=== PATIENT | female | born 1960 | race African-American/Black ===

== ENCOUNTER 2022-04-30 12:55 | Inpatient (IN) | payer OTHER ==
[2022-04-30] VITALS (14 sets, daily range): BP systolic 90–112; BP diastolic 56–65
[~2022-04-30] VITALS: Ht 170.2 cm; Wt 96.6 kg
[2022-04-30] MEDS ORDERED: VANCOMYCIN 1G PREMIX 200 ML IV ONE (13:30)
[2022-04-30] MEDS ORDERED: SODIUM CHLORIDE 0.9% 1,000 ML IV ONE (13:30)
[2022-04-30] MEDS ORDERED: CEFTRIAXONE 1 G PREMIX 50 ML IV ONE (13:30)
[2022-04-30 13:53] LABS: HEMATOCRIT. 33.3 % (36.0-48.0); HEMOGLOBIN. 10.4 g/dL (12.0-16.0); MEAN CORPUSCULAR HEMOGLOBIN 34.8 pg (28.0-32.0); MEAN CORPUSCULAR VOLUME 111.4 fL (81.0-99.0); MEAN PLATELET VOLUME 9.7 fl (7.4-10.4); PLATELET 93 x1000/uL (130-400); RED BLOOD CELL COUNT 2.99 mill/uL (4.2-5.4); RED CELL DISTRIBUTION WIDTH 22.3 % (11.6-14.6)
[2022-04-30 14:00] LABS: CLARITY URINE CLOUDY (CLEAR); COLOR URINE DARK YELLOW (YELLOW); KETONES URINE TRACE (NEGATIVE); LEUKOCYTE ESTERASE URINE 2+ (NEGATIVE); NITRITE URINE NEGATIVE (NEGATIVE); OCCULT BLOOD URINE NEGATIVE (NEGATIVE); PH URINE 5.5 (4.5-8.0); PROTEIN URINE 1+ (NEGATIVE); SPECIFIC GRAVITY URINE 1.029 (1.005-1.030)
[2022-04-30] MEDS ORDERED: SODIUM CHLORIDE 0.9% 1000ML BAG (SEPSIS BOLUS) IV ONE (14:00)
[2022-04-30 14:02] LABS: CHLORIDE 105 mEq/L (98-107)
[2022-04-30 14:16] LABS: CREATINE KINASE 52 IU/L (26-192); ETHANOL BLOOD < 10 mg/dL
[2022-04-30 14:31] LABS: NUCLEATED RED BLOOD CELLS 2 /100 WBC; PLATELET ESTIMATE DECREASED
[2022-04-30] MEDS ORDERED: CEFEPIME 2,000 MG in DEXT 5% WATER 100 ML IV SCH (14:45)
[2022-04-30] MEDS ORDERED: NOREPINEPHRINE 8MG/250ML PMX 250 ML IV ONE ×2 (14:45→23:15)
[2022-04-30] MEDS ORDERED: IOHEXOL-350 100 ML BOTTLE ONE (14:52)
[2022-04-30 15:43] LABS: INR 1.3; PARTIAL THROMBOPLASTIN TIME 37.7 sec (23.4-31.0); PROTHROMBIN TIME 13.3 sec (9.6-11.0)
[2022-04-30] MEDS ORDERED: AMPICILLIN 2000MG in SODIUM CHLORIDE 0.9% 100ML IV NR (16:00)
[2022-04-30] MEDS ORDERED: ACYCLOVIR INJ 600 MG in DEXT 5% WATER 100 ML IV NR (16:00)
[2022-04-30] MEDS ORDERED: FENTANYL CITRATE/PF 50MCG/ML 2ML VIAL IV ONE (16:00)
[2022-04-30] MEDS ORDERED: MAGNESIUM/ALUMINUM HYDROXIDE/SIMETHICONE 30ML UDC PO PRN (18:00)
[2022-04-30] MEDS ORDERED: DIAZEPAM 5 MG/ML 2ML CPJ IV PRN (18:00)
[2022-04-30] MEDS ORDERED: ACETAMINOPHEN 325MG TABLET PO PRN (18:00)
[2022-04-30] MEDS ORDERED: GUAIFENESIN 200MG/10ML SUGAR FREE UDC PO PRN (18:00)
[2022-04-30] MEDS: ENOXAPARIN 40MG/0.4ML SYR SUBCUT SCH ×2 (19:00→22:03)
[2022-04-30] MEDS: SODIUM CHLORIDE 0.9% 1,000 ML IV SCH (20:00)
[2022-04-30] MEDS: VANCOMYCIN 1G PREMIX 200 ML IV SCH (20:36)
[2022-04-30] MEDS ORDERED: PHENYLEPHRINE 50 MG in DEXT 5% WATER 245 ML IV PRN (23:15)
[2022-04-30] MEDS ORDERED: ACYCLOVIR INJ 750 MG in DEXT 5% WATER 100 ML IV SCH (23:55)
[2022-05-01] VITALS (93 sets, daily range): BP systolic 68–137; BP diastolic 48–89
[2022-05-01] MEDS: SODIUM CHLORIDE 0.9% 1,000 ML IV SCH ×4 (01:42→23:56)
[2022-05-01] MEDS: NOREPINEPHRINE 8 MG in DEXTROSE 5% WATER 250 ML IV PRN ×2 (01:44→17:36)
[2022-05-01] MEDS: ACYCLOVIR INJ 750 MG in DEXT 5% WATER 100 ML IV SCH ×3 (01:44→17:36)
[2022-05-01] MEDS: MORPHINE SULFATE 2 MG/ML CPJ (NOT FOR IM USE) IV PRN ×2 (04:27→09:58)
[2022-05-01 04:29] LABS: HEMATOCRIT. 28.1 % (36.0-48.0); HEMOGLOBIN. 9.4 g/dL (12.0-16.0); MEAN CORPUSCULAR VOLUME 104.4 fL (81.0-99.0); MEAN PLATELET VOLUME 10.1 fl (7.4-10.4); PLATELET 79 x1000/uL (130-400); RED BLOOD CELL COUNT 2.69 mill/uL (4.2-5.4); RED CELL DISTRIBUTION WIDTH 22.4 % (11.6-14.6)
[2022-05-01 04:36] LABS: CHLORIDE 109 mEq/L (98-107)
[2022-05-01 04:40] LABS: PHOSPHORUS 2.8 mg/dL (2.5-4.9)
[2022-05-01] MEDS: VANCOMYCIN 1G PREMIX 200 ML IV SCH (05:20)
[2022-05-01 05:33] LABS: PLATELET ESTIMATE DECREASED
[2022-05-01 07:21] LABS: BG BASE EXCESS -4.5 mmol/L (-2.0-2.0); BG CARBOXYHEMOGLOBIN 0.4 % (0.5-1.5); BG DEOXYHEMOGLOBIN 4.4 % (0.0-5.0); BG HCO3 ACT 19.2 mmol/L (22.0-26.0); BG METHEMOGLOBIN 0.1 % (0.0-1.5); BG OXYGEN SATURATION 95.6 % (92.0-98.5); BG OXYHEMOGLOBIN 95.1 % (94.0-97.0); BG PO2 80.4 mmHg (75.0-100.0); BG SAMPLE SITE RIGHT RADIAL; BG TOTAL HEMOGLOBIN 11.6 g/dL (12.0-18.0); BG VENT MODE ROOM AIR
[2022-05-01] MEDS: CEFEPIME 2,000 MG in DEXT 5% WATER 100 ML IV SCH ×2 (13:42→23:53)
[2022-05-01] MEDS ORDERED: VANCOMYCIN 1G PREMIX 200 ML IV SCH (20:00)
[2022-05-01] MEDS ORDERED: NALOXONE HCL 0.4MG/ML VIAL IV PRN (23:00)
[2022-05-02] VITALS (74 sets, daily range): BP systolic 98–138; BP diastolic 51–86
[2022-05-02] MEDS: MORPHINE SULFATE 2 MG/ML CPJ (NOT FOR IM USE) IV PRN ×2 (01:47→20:43)
[2022-05-02] MEDS: ACYCLOVIR INJ 750 MG in DEXT 5% WATER 100 ML IV SCH ×3 (03:08→17:53)
[2022-05-02 05:08] LABS: HEMATOCRIT. 24.8 % (36.0-48.0); HEMOGLOBIN. 7.9 g/dL (12.0-16.0); MEAN CORPUSCULAR HEMOGLOBIN 34.8 pg (28.0-32.0); MEAN CORPUSCULAR VOLUME 109.1 fL (81.0-99.0); MEAN PLATELET VOLUME 9.9 fl (7.4-10.4); PLATELET 59 x1000/uL (130-400); RED BLOOD CELL COUNT 2.28 mill/uL (4.2-5.4)
[2022-05-02 05:42] LABS: CHLORIDE 110 mEq/L (98-107)
[2022-05-02 05:56] LABS: PHOSPHORUS 2.4 mg/dL (2.5-4.9); TOTAL IRON BINDING CAPACITY 180 ug/dL (250-450)
[2022-05-02 05:58] LABS: CARCINO EMBRYONIC ANTIGEN 33.5 ng/ml
[2022-05-02 06:09] LABS: HEPATITIS B SURFACE ANTIGEN NEGATIVE
[2022-05-02 06:18] LABS: VITAMIN B12 SERUM >2000 pg/mL pg/mL (211-911)
[2022-05-02 06:28] LABS: FERRITIN 2860 ng/mL (10-291)
[2022-05-02] MEDS: CEFEPIME 2,000 MG in DEXT 5% WATER 100 ML IV SCH (09:49)
[2022-05-02] MEDS: SODIUM HYPOCHLORITE 0.125% 473ML SOLUTION TOP SCH (09:50)
[2022-05-02] MEDS: KCL 20MEQ/100ML PREMIX 100 ML IV SCH ×2 (12:00→14:34)
[2022-05-02] MEDS: FOLIC ACID 1MG TABLET PO SCH (12:26)
[2022-05-02 14:00] LABS: NUCLEATED RED BLOOD CELLS 5 /100 WBC
[2022-05-02 14:01] LABS: PLATELET ESTIMATE DECREASED
[2022-05-02] MEDS: LEVOFLOXACIN 750MG PREMIX 150 ML IV SCH (17:53)
[2022-05-02] MEDS: ACETAMINOPHEN 325MG TABLET PO PRN (17:53)
[2022-05-02] MEDS: VANCOMYCIN 750MG PREMIX 150 ML IV SCH (20:40)
[2022-05-02] MEDS: LACTULOSE 20G/30ML UDC PO SCH (20:40)
[2022-05-03] VITALS (81 sets, daily range): BP systolic 98–135; BP diastolic 51–89
[2022-05-03] MEDS: ACYCLOVIR INJ 750 MG in DEXT 5% WATER 100 ML IV SCH ×3 (01:11→17:04)
[2022-05-03 06:03] LABS: CHLORIDE 108 mEq/L (98-107)
[2022-05-03] MEDS: FOLIC ACID 1MG TABLET PO SCH (09:41)
[2022-05-03] MEDS: SODIUM HYPOCHLORITE 0.125% 473ML SOLUTION TOP SCH (09:42)
[2022-05-03] MEDS: VANCOMYCIN 750MG PREMIX 150 ML IV SCH (13:12)
[2022-05-03] MEDS: LEVOFLOXACIN 750MG PREMIX 150 ML IV SCH (17:04)
[2022-05-03 19:34] LABS: BASOPHILS % 0.2 % (0.0-2.0); EOSINOPHILS % 0.1 % (0.0-5.0); HEMATOCRIT. 26.2 % (36.0-48.0); HEMOGLOBIN. 8.6 g/dL (12.0-16.0); LYMPHOCYTES % 13.8 % (20.0-50.0); MEAN CORPUSCULAR HEMOGLOBIN 35.5 pg (28.0-32.0); MEAN CORPUSCULAR VOLUME 107.8 fL (81.0-99.0); MEAN PLATELET VOLUME 10.4 fl (7.4-10.4); MONOCYTES % 2.5 % (2.0-8.0); NEUTROPHILS % 83.4 % (40.0-76.0); PLATELET 55 x1000/uL (130-400); RED BLOOD CELL COUNT 2.43 mill/uL (4.2-5.4); RED CELL DISTRIBUTION WIDTH 22.3 % (11.6-14.6)
[2022-05-03 20:34] LABS: PLATELET ESTIMATE MARKEDLY DECREASED
[2022-05-03] MEDS: LACTULOSE 20G/30ML UDC PO SCH (21:20)
[2022-05-04] VITALS (52 sets, daily range): BP systolic 84–136; BP diastolic 51–91
[2022-05-04] MEDS: ACYCLOVIR INJ 750 MG in DEXT 5% WATER 100 ML IV SCH ×3 (02:00→19:51)
[2022-05-04] MEDS: MORPHINE SULFATE 2 MG/ML CPJ (NOT FOR IM USE) IV PRN ×2 (04:27→17:55)
[2022-05-04 06:12] LABS: CHLORIDE 109 mEq/L (98-107)
[2022-05-04] MEDS: VANCOMYCIN 750MG PREMIX 150 ML IV SCH (07:42)
[2022-05-04 08:11] LABS: HEMATOCRIT. 22.9 % (36.0-48.0); MEAN CORPUSCULAR HEMOGLOBIN 36.6 pg (28.0-32.0); MEAN CORPUSCULAR VOLUME 104.5 fL (81.0-99.0); MEAN PLATELET VOLUME 10.6 fl (7.4-10.4); PLATELET 52 x1000/uL (130-400); RED BLOOD CELL COUNT 2.19 mill/uL (4.2-5.4); RED CELL DISTRIBUTION WIDTH 22.2 % (11.6-14.6)
[2022-05-04] MEDS ORDERED: LIDOCAINE HCL 1% 10 MG/ML 10ML VIAL ONE (08:29)
[2022-05-04] MEDS: FOLIC ACID 1MG TABLET PO SCH (09:48)
[2022-05-04] MEDS: SODIUM HYPOCHLORITE 0.125% 473ML SOLUTION TOP SCH (09:48)
[2022-05-04 12:24] LABS: NUCLEATED RED BLOOD CELLS 2 /100 WBC
[2022-05-04 12:25] LABS: PLATELET ESTIMATE DECREASED
[2022-05-04] MEDS: LEVOFLOXACIN 750MG PREMIX 150 ML IV SCH (17:44)
[2022-05-04] MEDS: LACTULOSE 20G/30ML UDC PO SCH (21:52)
[2022-05-05] VITALS (12 sets, daily range): BP systolic 97–117; BP diastolic 48–72
[2022-05-05] MEDS: VANCOMYCIN 750MG PREMIX 150 ML IV SCH ×2 (02:35→20:57)
[2022-05-05] MEDS: ACYCLOVIR INJ 750 MG in DEXT 5% WATER 100 ML IV SCH ×3 (04:27→19:34)
[2022-05-05] MEDS: MORPHINE SULFATE 2 MG/ML CPJ (NOT FOR IM USE) IV PRN ×5 (04:57→22:11)
[2022-05-05 06:16] LABS: CHLORIDE 109 mEq/L (98-107)
[2022-05-05 06:53] LABS: BASOPHILS % 0.2 % (0.0-2.0); EOSINOPHILS % 0.1 % (0.0-5.0); HEMATOCRIT. 23.2 % (36.0-48.0); HEMOGLOBIN. 7.6 g/dL (12.0-16.0); LYMPHOCYTES % 18.2 % (20.0-50.0); MEAN CORPUSCULAR HEMOGLOBIN 35.5 pg (28.0-32.0); MEAN PLATELET VOLUME 11.7 fl (7.4-10.4); MONOCYTES % 2.8 % (2.0-8.0); NEUTROPHILS % 78.7 % (40.0-76.0); RED BLOOD CELL COUNT 2.15 mill/uL (4.2-5.4); RED CELL DISTRIBUTION WIDTH 22.9 % (11.6-14.6)
[2022-05-05] MEDS: PANTOPRAZOLE SODIUM 40 MG/VIAL IV SCH ×2 (06:54→20:58)
[2022-05-05 06:57] LABS: PLATELET 41 x1000/uL (130-400)
[2022-05-05] MEDS: ONDANSETRON HCL 4MG/2ML INJ IV PRN ×2 (09:32→13:20)
[2022-05-05] MEDS: FOLIC ACID 1MG TABLET PO SCH (10:19)
[2022-05-05] MEDS: SODIUM HYPOCHLORITE 0.125% 473ML SOLUTION TOP SCH (10:20)
[2022-05-05] MEDS: LEVOFLOXACIN 750MG PREMIX 150 ML IV SCH (17:32)
[2022-05-05] MEDS: LACTULOSE 20G/30ML UDC PO SCH (20:58)
[2022-05-05 22:33] LABS: PLATELET ESTIMATE MARKEDLY DECREASED
[2022-05-06] VITALS (18 sets, daily range): BP systolic 97–120; BP diastolic 55–71
[2022-05-06] MEDS: ACYCLOVIR INJ 750 MG in DEXT 5% WATER 100 ML IV SCH ×3 (02:07→22:10)
[2022-05-06] MEDS: MORPHINE SULFATE 2 MG/ML CPJ (NOT FOR IM USE) IV PRN ×5 (02:08→22:25)
[2022-05-06 07:12] LABS: HEMATOCRIT. 21.2 % (36.0-48.0); HEMOGLOBIN. 7.3 g/dL (12.0-16.0); MEAN CORPUSCULAR VOLUME 104.8 fL (81.0-99.0); MEAN PLATELET VOLUME 11.8 fl (7.4-10.4); RED BLOOD CELL COUNT 2.03 mill/uL (4.2-5.4); RED CELL DISTRIBUTION WIDTH 23.2 % (11.6-14.6)
[2022-05-06 07:18] LABS: CHLORIDE 111 mEq/L (98-107)
[2022-05-06 07:19] LABS: INR 1.1; PROTHROMBIN TIME 12.1 sec (9.6-11.0)
[2022-05-06 08:17] LABS: PLATELET 40 x1000/uL (130-400)
[2022-05-06] MEDS: PANTOPRAZOLE SODIUM 40 MG/VIAL IV SCH (08:27)
[2022-05-06] MEDS: SODIUM HYPOCHLORITE 0.125% 473ML SOLUTION TOP SCH (09:00)
[2022-05-06] MEDS: FOLIC ACID 1MG TABLET PO SCH (09:00)
[2022-05-06 10:31] LABS: NUCLEATED RED BLOOD CELLS 6 /100 WBC
[2022-05-06 10:32] LABS: PLATELET ESTIMATE MARKEDLY DECREASED
[2022-05-06] MEDS: VANCOMYCIN 750MG PREMIX 150 ML IV SCH (14:44)
[2022-05-06] MEDS: LEVOFLOXACIN 750MG PREMIX 150 ML IV SCH (17:41)
[2022-05-06 18:48] LABS: HEMATOCRIT 26.1 % (36.0-48.0); HEMOGLOBIN 8.8 g/dL (12.0-16.0)
[2022-05-06] MEDS: LACTULOSE 20G/30ML UDC PO SCH (22:10)
[2022-05-07] VITALS (18 sets, daily range): BP systolic 94–128; BP diastolic 52–76
[2022-05-07] MEDS: ACYCLOVIR INJ 750 MG in DEXT 5% WATER 100 ML IV SCH ×3 (04:51→17:22)
[2022-05-07 06:33] LABS: HEMATOCRIT. 25.4 % (36.0-48.0); HEMOGLOBIN. 8.6 g/dL (12.0-16.0); MEAN CORPUSCULAR HEMOGLOBIN 33.9 pg (28.0-32.0); MEAN CORPUSCULAR VOLUME 99.7 fL (81.0-99.0); MEAN PLATELET VOLUME 10.3 fl (7.4-10.4); RED BLOOD CELL COUNT 2.54 mill/uL (4.2-5.4); RED CELL DISTRIBUTION WIDTH 23.5 % (11.6-14.6)
[2022-05-07 06:47] LABS: PLATELET 35 x1000/uL (130-400)
[2022-05-07 06:57] LABS: CHLORIDE 110 mEq/L (98-107)
[2022-05-07] MEDS: FOLIC ACID 1MG TABLET PO SCH (09:09)
[2022-05-07] MEDS: VANCOMYCIN 750MG PREMIX 150 ML IV SCH (09:09)
[2022-05-07] MEDS: PANTOPRAZOLE SODIUM 40 MG/VIAL IV SCH (09:09)
[2022-05-07] MEDS ORDERED: POTASSIUM CHLORIDE INJ 40 MEQ in DEXT 5% WATER 250 ML IV ONE (10:15)
[2022-05-07 10:53] LABS: NUCLEATED RED BLOOD CELLS 8 /100 WBC; PLATELET ESTIMATE MARKEDLY DECREASED
[2022-05-07] MEDS: MORPHINE SULFATE 2 MG/ML CPJ (NOT FOR IM USE) IV PRN (11:01)
[2022-05-07] MEDS: KCL 20MEQ/100ML X 2 FOR TOTAL KCL 40MEQ/200ML IV SCH (17:20)
[2022-05-07] MEDS: LEVOFLOXACIN 750MG PREMIX 150 ML IV SCH (17:22)
[2022-05-07] MEDS: SODIUM HYPOCHLORITE 0.125% 473ML SOLUTION TOP SCH (17:23)
[2022-05-07] MEDS: ONDANSETRON HCL 4MG/2ML INJ IV PRN (21:54)
[2022-05-07] MEDS: LACTULOSE 20G/30ML UDC PO SCH (21:54)
[2022-05-08] VITALS (13 sets, daily range): BP systolic 98–125; BP diastolic 55–81
[2022-05-08] MEDS: ACYCLOVIR INJ 750 MG in DEXT 5% WATER 100 ML IV SCH ×3 (03:09→18:00)
[2022-05-08] MEDS: VANCOMYCIN 750MG PREMIX 150 ML IV SCH ×2 (03:09→21:24)
[2022-05-08] MEDS: MORPHINE SULFATE 2 MG/ML CPJ (NOT FOR IM USE) IV PRN ×3 (04:06→19:40)
[2022-05-08] MEDS: PANTOPRAZOLE SODIUM 40 MG/VIAL IV SCH (07:36)
[2022-05-08] MEDS: KCL 20MEQ/100ML X 2 FOR TOTAL KCL 40MEQ/200ML IV SCH (07:36)
[2022-05-08] MEDS: FOLIC ACID 1MG TABLET PO SCH (07:36)
[2022-05-08 09:01] LABS: HEMATOCRIT. 23.9 % (36.0-48.0); HEMOGLOBIN. 8.2 g/dL (12.0-16.0); MEAN CORPUSCULAR HEMOGLOBIN 34.1 pg (28.0-32.0); MEAN CORPUSCULAR VOLUME 100.1 fL (81.0-99.0); MEAN PLATELET VOLUME 8.8 fl (7.4-10.4); PLATELET 58 x1000/uL (130-400); RED BLOOD CELL COUNT 2.39 mill/uL (4.2-5.4)
[2022-05-08 09:36] LABS: CHLORIDE 111 mEq/L (98-107)
[2022-05-08 09:50] LABS: PHOSPHORUS 1.8 mg/dL (2.5-4.9)
[2022-05-08] MEDS: SODIUM HYPOCHLORITE 0.125% 473ML SOLUTION TOP SCH (09:52)
[2022-05-08] MEDS ORDERED: DEXAMETHASONE 4MG/ML 1ML VIAL ONE (15:07)
[2022-05-08] MEDS ORDERED: ONDANSETRON HCL 4MG/2ML INJ ONE (15:07)
[2022-05-08] MEDS ORDERED: ETOMIDATE 2MG/ML 10ML VIAL IV ONE (15:07)
[2022-05-08] MEDS ORDERED: FENTANYL CITRATE/PF 50MCG/ML 2ML VIAL ONE ×2 (15:07→16:18)
[2022-05-08] MEDS ORDERED: MIDAZOLAM HCL 2 MG/2 ML VIAL ONE (15:08)
[2022-05-08] MEDS ORDERED: PROPOFOL 200MG/20ML VIAL IV ONE (15:20)
[2022-05-08] MEDS ORDERED: PHENYLEPHRINE HCL 10 MG/ML 1ML (IV VIAL) IV ONE (15:28)
[2022-05-08] MEDS ORDERED: KETOROLAC 30MG/ML VIAL IV PRN (17:15)
[2022-05-08] MEDS ORDERED: NALOXONE HCL 0.4MG/ML VIAL IV PRN (17:15)
[2022-05-08] MEDS ORDERED: DIPHENHYDRAMINE 50MG/ML VIAL IV PRN (17:15)
[2022-05-08] MEDS ORDERED: ONDANSETRON HCL 4MG/2ML INJ IV PRN (17:15)
[2022-05-08] MEDS ORDERED: BUTORPHANOL TARTRATE 2 MG/ML VIAL IV PRN (17:15)
[2022-05-08] MEDS ORDERED: HYDROMORPHONE HCL/PF 2MG/ML CPJ IV PRN (17:15)
[2022-05-08] MEDS: LEVOFLOXACIN 750MG PREMIX 150 ML IV SCH (20:20)
[2022-05-08] MEDS: LACTULOSE 20G/30ML UDC PO SCH (21:24)
[2022-05-09] VITALS (12 sets, daily range): BP systolic 86–114; BP diastolic 54–85
[2022-05-09 00:02] LABS: HEMATOCRIT 28.8 % (36.0-48.0); HEMOGLOBIN 9.8 g/dL (12.0-16.0)
[2022-05-09] MEDS: ACYCLOVIR INJ 750 MG in DEXT 5% WATER 100 ML IV SCH ×3 (02:16→17:24)
[2022-05-09 04:18] LABS: NUCLEATED RED BLOOD CELLS 3 /100 WBC; PLATELET ESTIMATE MARKEDLY DECREASED
[2022-05-09 07:59] LABS: BASOPHILS % 0.1 % (0.0-2.0); EOSINOPHILS % 0.3 % (0.0-5.0); HEMATOCRIT. 31.8 % (36.0-48.0); HEMOGLOBIN. 10.8 g/dL (12.0-16.0); LYMPHOCYTES % 13.4 % (20.0-50.0); MEAN CORPUSCULAR VOLUME 97.3 fL (81.0-99.0); MEAN PLATELET VOLUME 9.1 fl (7.4-10.4); MONOCYTES % 3.1 % (2.0-8.0); NEUTROPHILS % 83.1 % (40.0-76.0); PLATELET 72 x1000/uL (130-400); RED BLOOD CELL COUNT 3.27 mill/uL (4.2-5.4); RED CELL DISTRIBUTION WIDTH 19.5 % (11.6-14.6)
[2022-05-09 08:33] LABS: CHLORIDE 109 mEq/L (98-107)
[2022-05-09] MEDS: SODIUM HYPOCHLORITE 0.125% 473ML SOLUTION TOP SCH (09:00)
[2022-05-09] MEDS: MORPHINE SULFATE 2 MG/ML CPJ (NOT FOR IM USE) IV PRN ×4 (09:27→17:59)
[2022-05-09] MEDS: PANTOPRAZOLE SODIUM 40 MG/VIAL IV SCH (09:28)
[2022-05-09] MEDS: FOLIC ACID 1MG TABLET PO SCH (09:28)
[2022-05-09] MEDS: VANCOMYCIN 750MG PREMIX 150 ML IV SCH (13:59)
[2022-05-09] MEDS: LEVOFLOXACIN 750MG PREMIX 150 ML IV SCH (18:51)
[2022-05-09] MEDS: LACTULOSE 20G/30ML UDC PO SCH (21:56)
[2022-05-10] VITALS (12 sets, daily range): BP systolic 92–131; BP diastolic 52–78
[2022-05-10] MEDS: ACYCLOVIR INJ 750 MG in DEXT 5% WATER 100 ML IV SCH ×3 (02:03→18:02)
[2022-05-10] MEDS: MORPHINE SULFATE 2 MG/ML CPJ (NOT FOR IM USE) IV PRN ×3 (02:21→19:36)
[2022-05-10] MEDS: VANCOMYCIN 750MG PREMIX 150 ML IV SCH (08:46)
[2022-05-10] MEDS: FOLIC ACID 1MG TABLET PO SCH (08:46)
[2022-05-10] MEDS: PANTOPRAZOLE SODIUM 40 MG/VIAL IV SCH (08:46)
[2022-05-10] MEDS: SODIUM HYPOCHLORITE 0.125% 473ML SOLUTION TOP SCH (08:47)
[2022-05-10] MEDS: CEFTRIAXONE 2 G in DEXTROSE 5% WATER 50 ML IV SCH (17:47)
[2022-05-10] MEDS ORDERED: LEVOFLOXACIN 750MG PREMIX 150 ML IV SCH (20:00)
[2022-05-10] MEDS: LACTULOSE 20G/30ML UDC PO SCH (21:05)
[2022-05-11] VITALS (10 sets, daily range): BP systolic 89–130; BP diastolic 56–71
[2022-05-11] MEDS: MORPHINE SULFATE 2 MG/ML CPJ (NOT FOR IM USE) IV PRN ×2 (00:37→15:38)
[2022-05-11] MEDS: VANCOMYCIN 750MG PREMIX 150 ML IV SCH (01:55)
[2022-05-11] MEDS: ACYCLOVIR INJ 750 MG in DEXT 5% WATER 100 ML IV SCH ×3 (01:55→18:28)
[2022-05-11 06:24] LABS: BASOPHILS % 0.1 % (0.0-2.0); HEMATOCRIT. 25.7 % (36.0-48.0); LYMPHOCYTES % 10.8 % (20.0-50.0); MEAN CORPUSCULAR HEMOGLOBIN 33.4 pg (28.0-32.0); MEAN CORPUSCULAR VOLUME 97.3 fL (81.0-99.0); MEAN PLATELET VOLUME 8.6 fl (7.4-10.4); MONOCYTES % 3.7 % (2.0-8.0); NEUTROPHILS % 85.4 % (40.0-76.0); PLATELET 51 x1000/uL (130-400); RED BLOOD CELL COUNT 2.65 mill/uL (4.2-5.4); RED CELL DISTRIBUTION WIDTH 20.8 % (11.6-14.6)
[2022-05-11 06:37] LABS: CHLORIDE 107 mEq/L (98-107)
[2022-05-11 07:50] LABS: HEMOGLOBIN. 8.8 g/dL (12.0-16.0)
[2022-05-11] MEDS: ACETAMINOPHEN 325MG TABLET PO PRN (08:13)
[2022-05-11] MEDS: SODIUM HYPOCHLORITE 0.125% 473ML SOLUTION TOP SCH (08:13)
[2022-05-11] MEDS: FOLIC ACID 1MG TABLET PO SCH (08:13)
[2022-05-11] MEDS: PANTOPRAZOLE SODIUM 40 MG/VIAL IV SCH (08:13)
[2022-05-11] MEDS: GUAIFENESIN 600MG ER TABLET PO SCH ×2 (16:00→17:00)
[2022-05-11] MEDS: CEFTRIAXONE 2 G in DEXTROSE 5% WATER 50 ML IV SCH (17:00)
[2022-05-11 17:16] LABS: CLARITY URINE TURBID (CLEAR); COLOR URINE YELLOW (YELLOW); KETONES URINE NEGATIVE (NEGATIVE); LEUKOCYTE ESTERASE URINE 2+ (NEGATIVE); NITRITE URINE NEGATIVE (NEGATIVE); OCCULT BLOOD URINE 2+ (NEGATIVE); PROTEIN URINE 2+ (NEGATIVE); SPECIFIC GRAVITY URINE 1.007 (1.005-1.030); UROBILINOGEN URINE 0.2 E.U./dL (0.2-1.0)
[2022-05-11] MEDS: METRONIDAZOLE 500 MG PREMIX 100 ML IV SCH (18:27)
[2022-05-11] MEDS: LACTULOSE 20G/30ML UDC PO SCH (21:26)
[2022-05-11] MEDS: LEVETIRACETAM 500MG TABLET PO SCH (21:26)
[2022-05-12] VITALS (9 sets, daily range): BP systolic 108–148; BP diastolic 59–81
[2022-05-12] MEDS: METRONIDAZOLE 500 MG PREMIX 100 ML IV SCH ×4 (01:00→22:17)
[2022-05-12] MEDS: ACYCLOVIR INJ 750 MG in DEXT 5% WATER 100 ML IV SCH ×3 (02:54→18:51)
[2022-05-12 06:18] LABS: CHLORIDE 105 mEq/L (98-107)
[2022-05-12 06:19] LABS: HEMATOCRIT. 28.7 % (36.0-48.0); HEMOGLOBIN. 9.6 g/dL (12.0-16.0); MEAN CORPUSCULAR HEMOGLOBIN 32.5 pg (28.0-32.0); MEAN CORPUSCULAR VOLUME 97.2 fL (81.0-99.0); MEAN PLATELET VOLUME 8.8 fl (7.4-10.4); PLATELET 51 x1000/uL (130-400); RED BLOOD CELL COUNT 2.95 mill/uL (4.2-5.4); RED CELL DISTRIBUTION WIDTH 20.3 % (11.6-14.6)
[2022-05-12] MEDS: SODIUM HYPOCHLORITE 0.125% 473ML SOLUTION TOP SCH (09:00)
[2022-05-12] MEDS: PANTOPRAZOLE SODIUM 40 MG/VIAL IV SCH (09:10)
[2022-05-12] MEDS: LEVETIRACETAM 500MG TABLET PO SCH ×2 (09:10→22:17)
[2022-05-12] MEDS: GUAIFENESIN 600MG ER TABLET PO SCH ×2 (09:10→22:17)
[2022-05-12] MEDS: FOLIC ACID 1MG TABLET PO SCH (09:10)
[2022-05-12 15:50] LABS: NUCLEATED RED BLOOD CELLS 4 /100 WBC; PLATELET ESTIMATE MARKEDLY DECREASED
[2022-05-12] MEDS: CEFTRIAXONE 2 G in DEXTROSE 5% WATER 50 ML IV SCH (18:38)
[2022-05-12] MEDS: LACTULOSE 20G/30ML UDC PO SCH (22:17)
[2022-05-13] VITALS: BP 108/69
[2022-05-13] MEDS: ACYCLOVIR INJ 750 MG in DEXT 5% WATER 100 ML IV SCH ×3 (02:49→20:59)
[2022-05-13 04:00] VITALS: BP 99/64
[2022-05-13] MEDS: METRONIDAZOLE 500 MG PREMIX 100 ML IV SCH ×3 (07:23→22:00)
[2022-05-13 08:15] LABS: HEMATOCRIT. 28.1 % (36.0-48.0); HEMOGLOBIN. 9.4 g/dL (12.0-16.0); MEAN CORPUSCULAR HEMOGLOBIN 32.6 pg (28.0-32.0); MEAN CORPUSCULAR VOLUME 97.2 fL (81.0-99.0); MEAN PLATELET VOLUME 8.4 fl (7.4-10.4); RED CELL DISTRIBUTION WIDTH 19.1 % (11.6-14.6)
[2022-05-13 08:41] LABS: PLATELET 42 x1000/uL (130-400)
[2022-05-13] MEDS: SODIUM HYPOCHLORITE 0.125% 473ML SOLUTION TOP SCH (09:00)
[2022-05-13] MEDS: GUAIFENESIN 600MG ER TABLET PO SCH ×2 (09:24→21:00)
[2022-05-13] MEDS: LEVETIRACETAM 500MG TABLET PO SCH ×2 (09:24→21:00)
[2022-05-13] MEDS: FOLIC ACID 1MG TABLET PO SCH (09:24)
[2022-05-13] MEDS: PANTOPRAZOLE SODIUM 40 MG/VIAL IV SCH (09:24)
[2022-05-13 09:57] LABS: NUCLEATED RED BLOOD CELLS 1 /100 WBC
[2022-05-13 09:59] LABS: PLATELET ESTIMATE MARKEDLY DECREASED
[2022-05-13 11:33] LABS: INR 1.2; PARTIAL THROMBOPLASTIN TIME 41.9 sec (23.4-31.0); PROTHROMBIN TIME 12.7 sec (9.6-11.0)
[2022-05-13 12:00] VITALS: BP 88/57
[2022-05-13] MEDS ORDERED: SODIUM CHLORIDE 0.9% 1000ML BAG (SEPSIS BOLUS) IV ONE (12:15)
[2022-05-13] MEDS ORDERED: FUROSEMIDE 40MG/4ML VIAL IVP NR (13:15)
[2022-05-13 16:00] VITALS: BP 83/49
[2022-05-13] MEDS: CEFTRIAXONE 2 G in DEXTROSE 5% WATER 50 ML IV SCH (16:06)
[2022-05-13 20:00] VITALS: BP 85/52
[2022-05-13] MEDS: LACTULOSE 20G/30ML UDC PO SCH (21:00)
[2022-05-14] VITALS: BP 109/59
[2022-05-14 04:00] VITALS: BP 100/44
[2022-05-14] MEDS: METRONIDAZOLE 500 MG PREMIX 100 ML IV SCH ×3 (06:22→21:01)
[2022-05-14] MEDS: LEVETIRACETAM 500MG TABLET PO SCH ×2 (08:30→21:00)
[2022-05-14] MEDS: FOLIC ACID 1MG TABLET PO SCH (08:30)
[2022-05-14] MEDS: PANTOPRAZOLE SODIUM 40 MG/VIAL IV SCH (08:30)
[2022-05-14] MEDS: SODIUM HYPOCHLORITE 0.125% 473ML SOLUTION TOP SCH (08:30)
[2022-05-14] MEDS: GUAIFENESIN 600MG ER TABLET PO SCH ×2 (08:30→21:00)
[2022-05-14] MEDS: IPRATROPIUM/ALBUTEROL 0.5-3(2.5)MG/3ML NEB NEB PRN ×2 (09:48→13:47)
[2022-05-14 09:56] LABS: BASOPHILS % 0.2 % (0.0-2.0); EOSINOPHILS % 0.1 % (0.0-5.0); HEMOGLOBIN. 8.6 g/dL (12.0-16.0); LYMPHOCYTES % 9.6 % (20.0-50.0); MEAN CORPUSCULAR HEMOGLOBIN 32.6 pg (28.0-32.0); MEAN CORPUSCULAR VOLUME 98.7 fL (81.0-99.0); MEAN PLATELET VOLUME 8.8 fl (7.4-10.4); MONOCYTES % 1.1 % (2.0-8.0); RED BLOOD CELL COUNT 2.64 mill/uL (4.2-5.4); RED CELL DISTRIBUTION WIDTH 22.3 % (11.6-14.6)
[2022-05-14 10:06] LABS: PHOSPHORUS 3.6 mg/dL (2.5-4.9)
[2022-05-14] MEDS: ACYCLOVIR INJ 750 MG in DEXT 5% WATER 100 ML IV SCH (10:30)
[2022-05-14 10:45] LABS: PLATELET ESTIMATE MARKEDLY DECREASED
[2022-05-14 10:47] LABS: PLATELET 30 x1000/uL (130-400)
[2022-05-14] MEDS ORDERED: MIDODRINE HCL 5MG TABLET PO SCH (13:00)
[2022-05-14] MEDS ORDERED: MIDODRINE HCL 5MG TABLET PO NR (15:15)
[2022-05-14] MEDS ORDERED: ALBUMIN HUMAN 25GM/100ML (25%) IV NR (16:00)
[2022-05-14] MEDS: CEFTRIAXONE 2 G in DEXTROSE 5% WATER 50 ML IV SCH (17:40)
[2022-05-14] MEDS: LACTULOSE 20G/30ML UDC PO SCH (21:00)
[2022-05-14] MEDS: MIDODRINE HCL 5MG TABLET PO SCH (21:01)
[2022-05-14 21:45] VITALS: BP 83/48
[2022-05-15] VITALS: BP 62/35
[2022-05-15 04:00] VITALS: BP 71/38
[2022-05-15] MEDS: METRONIDAZOLE 500 MG PREMIX 100 ML IV SCH ×3 (05:24→21:47)
[2022-05-15] MEDS: MIDODRINE HCL 5MG TABLET PO SCH ×3 (05:25→21:47)
[2022-05-15 05:28] LABS: BASOPHILS % 0.2 % (0.0-2.0); HEMATOCRIT. 22.9 % (36.0-48.0); HEMOGLOBIN. 7.7 g/dL (12.0-16.0); MEAN CORPUSCULAR HEMOGLOBIN 32.7 pg (28.0-32.0); MEAN CORPUSCULAR VOLUME 97.5 fL (81.0-99.0); MEAN PLATELET VOLUME 8.6 fl (7.4-10.4); MONOCYTES % 1.1 % (2.0-8.0); NEUTROPHILS % 87.7 % (40.0-76.0); RED BLOOD CELL COUNT 2.35 mill/uL (4.2-5.4); RED CELL DISTRIBUTION WIDTH 20.4 % (11.6-14.6)
[2022-05-15 06:31] LABS: PLATELET 23 x1000/uL (130-400)
[2022-05-15 07:50] VITALS: BP 70/39
[2022-05-15] MEDS: PANTOPRAZOLE SODIUM 40 MG/VIAL IV SCH (08:39)
[2022-05-15] MEDS: FOLIC ACID 1MG TABLET PO SCH (08:40)
[2022-05-15] MEDS: SODIUM HYPOCHLORITE 0.125% 473ML SOLUTION TOP SCH (08:40)
[2022-05-15] MEDS: LEVETIRACETAM 500MG TABLET PO SCH ×2 (08:40→21:00)
[2022-05-15] MEDS: GUAIFENESIN 600MG ER TABLET PO SCH ×2 (08:40→21:00)
[2022-05-15 11:34] VITALS: BP 66/44
[2022-05-15 15:33] VITALS: BP 78/47
[2022-05-15] MEDS: CEFTRIAXONE 2 G in DEXTROSE 5% WATER 50 ML IV SCH (16:05)
[2022-05-15] MEDS ORDERED: MORPHINE SULFATE 250 MG in DEXT 5% WATER 225 ML IV PRN (16:30)
[2022-05-15] MEDS ORDERED: DEXTROSE 5% IV SCH (18:00)
[2022-05-15] MEDS ORDERED: ACYCLOVIR IV SCH (18:00)
[2022-05-15] MEDS ORDERED: WATER IV SCH (18:00)
[2022-05-15 20:00] VITALS: BP 87/44
[2022-05-15] MEDS: LACTULOSE 20G/30ML UDC PO SCH (21:00)
[2022-05-16] VITALS: BP 77/35
[2022-05-16 04:00] VITALS: BP 65/37
[2022-05-16] MEDS: SODIUM HYPOCHLORITE 0.125% 473ML SOLUTION TOP SCH (06:00)
[2022-05-16 12:00] VITALS: BP 53/32
[2022-05-16 16:00] VITALS: BP 55/26
[2022-05-16] MEDS: FOLIC ACID 1MG TABLET PO SCH (19:00)
[2022-05-16] MEDS: LEVETIRACETAM 500MG TABLET PO SCH ×2 (19:00→21:00)
[2022-05-16] MEDS: GUAIFENESIN 600MG ER TABLET PO SCH ×2 (19:00→21:00)
[2022-05-16] MEDS: PANTOPRAZOLE SODIUM 40 MG/VIAL IV SCH (19:00)
[2022-05-16 20:00] VITALS: BP 52/24
[2022-05-16 21:44] VITALS: BP 52/25
[2022-05-17] VITALS: BP 48/23
[2022-05-17 04:00] VITALS: BP 48/24
[2022-05-17 05:56] LABS: HEMATOCRIT. 24.5 % (36.0-48.0); HEMOGLOBIN. 8.3 g/dL (12.0-16.0); MEAN CORPUSCULAR HEMOGLOBIN 33.3 pg (28.0-32.0); MEAN PLATELET VOLUME 9.3 fl (7.4-10.4); RED BLOOD CELL COUNT 2.48 mill/uL (4.2-5.4); RED CELL DISTRIBUTION WIDTH 22.4 % (11.6-14.6)
[2022-05-17 06:34] LABS: PLATELET 13 x1000/uL (130-400)
[2022-05-17 08:00] VITALS: BP 47/24
[2022-05-17] MEDS: GUAIFENESIN 600MG ER TABLET PO SCH (08:42)
[2022-05-17] MEDS: PANTOPRAZOLE SODIUM 40 MG/VIAL IV SCH (08:42)
[2022-05-17] MEDS: SODIUM HYPOCHLORITE 0.125% 473ML SOLUTION TOP SCH (08:42)
[2022-05-17 11:18] LABS: NUCLEATED RED BLOOD CELLS 37 /100 WBC
[2022-05-17 11:20] LABS: PLATELET ESTIMATE MARKEDLY DECREASED
[2022-05-17 12:00] VITALS: BP_DIAS 20
[2022-05-17 16:00] VITALS: BP 42/19
[2022-05-17 20:00] VITALS: BP 43/19
[2022-05-18] VITALS: BP 46/19
[2022-05-18 04:00] VITALS: BP 43/18
[2022-05-18 08:00] VITALS: BP 42/16
[2022-05-18] MEDS: PANTOPRAZOLE SODIUM 40 MG/VIAL IV SCH (08:51)
[2022-05-18] MEDS: SODIUM HYPOCHLORITE 0.125% 473ML SOLUTION TOP SCH (08:51)
== END 2022-05-18 11:27 | DRG 853 ==
LOC: EDSEX 12:55 → ER 13:41 → EDBEDREQSVC 17:35 → EDBEDREQ 17:35 → SUPCPDRO 17:42 → ENRESERV 17:53 → MICUNO 21:41 → 5EST 05-04 17:52 → 7WST 05-11 12:50
PROVIDERS: ADMIT Internal Medicine; ATTEND Internal Medicine
PROC: 4A10X4Z Monitoring of Central Nervous Electrical Activity, External Approach (ICD-10-PCS; 2022-05-03)
PROC: 02HV33Z Insertion of Infusion Device into Superior Vena Cava, Percutaneous Approach (ICD-10-PCS; 2022-05-04)
PROC: 30233N1 Transfusion of Nonautologous Red Blood Cells into Peripheral Vein, Percutaneous Approach (ICD-10-PCS; 2022-05-06)
PROC: 0KBN0ZZ Excision of Right Hip Muscle, Open Approach (ICD-10-PCS; principal; 2022-05-08)
PROC: 30233R1 Transfusion of Nonautologous Platelets into Peripheral Vein, Percutaneous Approach (ICD-10-PCS; 2022-05-08)
DX: A41.9 Sepsis, unspecified organism (principal); E43 Unspecified severe protein-calorie malnutrition; L89.154 Pressure ulcer of sacral region, stage 4; J18.9 Pneumonia, unspecified organism; R65.21 Severe sepsis with septic shock; G93.6 Cerebral edema; C79.31 Secondary malignant neoplasm of brain; C79.51 Secondary malignant neoplasm of bone; B02.30 Zoster ocular disease, unspecified; N39.0 Urinary tract infection, site not specified; C78.7 Secondary malignant neoplasm of liver and intrahepatic bile duct; G93.40 Encephalopathy, unspecified; E72.20 Disorder of urea cycle metabolism, unspecified; E87.1 Hypo-osmolality and hyponatremia; N17.9 Acute kidney failure, unspecified; C50.919 Malignant neoplasm of unspecified site of unspecified female breast; D69.6 Thrombocytopenia, unspecified; D53.9 Nutritional anemia, unspecified; K80.20 Calculus of gallbladder without cholecystitis without obstruction; L08.9 Local infection of the skin and subcutaneous tissue, unspecified; Z20.822 Contact with and (suspected) exposure to COVID-19; L89.309 Pressure ulcer of unspecified buttock, unspecified stage; Z66 Do not resuscitate; L89.310 Pressure ulcer of right buttock, unstageable; B96.89 Other specified bacterial agents as the cause of diseases classified elsewhere; D69.59 Other secondary thrombocytopenia; E88.09 Other disorders of plasma-protein metabolism, not elsewhere classified; J32.0 Chronic maxillary sinusitis; K80.70 Calculus of gallbladder and bile duct without cholecystitis without obstruction; I12.9 Hypertensive chronic kidney disease with stage 1 through stage 4 chronic kidney disease, or unspecified chronic kidney disease; N18.9 Chronic kidney disease, unspecified; Z85.3 Personal history of malignant neoplasm of breast; Z92.3 Personal history of irradiation; Z92.21 Personal history of antineoplastic chemotherapy; Z51.5 Encounter for palliative care; Z74.01 Bed confinement status
CPT/HCPCS: 36415; 36430; 36573; 36600; 70496; 70498; 70551; 71045; 74018; 74177; 76700; 80048; 80053; 80076; 80202; 80307; 80320; 80329; 81003; 82105; 82140; 82375; 82378; 82550; 82607; 82728; 82746; 82805; 83540; 83550; 83605; 83735; 84100; 84134; 84145; 84443; 84484; 85014; 85018; 85025; 85044; 86022; 86301; 86705; 86709; 86803; 86850; 86900; 86920; 87070; 87075; 87077; 87106; 87186; 87207; 87340; 87426; 87804; 88304; 92610; 93005; 94640; 95816; 97161; 99291; C1725; C9113; C9803; J0133; J0290; J0692; J0696; J1100; J1650; J1940; J1956; J2250; J2270; J2370; J2405; J2704; J3010; J3370; J3480; J3490; J7030; J7040; J7050; J7060; J7070; P9016; P9034; P9047; Q9967; G0480; P9035